=== PATIENT | male | born 1940 | race African-American/Black ===

== ENCOUNTER 2022-11-07 15:10 | Emergency (ER) | payer OTHER ==
[2022-11-07 15:31] VITALS: BMI 25.1
[2022-11-07] MEDS ORDERED: SODIUM CHLORIDE 0.9% 500 ML INFUS.BAG IV ONE (16:02)
[2022-11-07] MEDS ORDERED: ACETAMINOPHEN 1000 MG/100 ML BAG IVPB ONE (16:02)
[2022-11-07] MEDS ORDERED: ACETAMINOPHEN INJECTION 100 ML IVPB ONE (16:07)
[2022-11-07 17:54] LABS: BASO % 0.7 % (0-2.0); EOS % 1.5 % (0-4.5); HEMATOCRIT 39.1 % (35.4-49); HEMOGLOBIN 13.8 GM/dL (11.7-16.9); LYMPH % 11.1 % (8-40); MCH 33.6 pg (25.7-33.7); MCHC 35.3 g/dl (32.0-35.9); MEAN CELL VOLUME 95.1 fl (80-96); MEAN PLT VOLUME 8.3 fl (7.5-11.1); MONO % 5.1 % (3.8-10.2); NEUT % 81.6 % (42.8-82.8); PLATELET COUNT 213 10^3/uL (134-434); RBC 4.11 M/mm3 (4.00-5.60); RDW 13.7 % (11.9-15.9); WHITE BLOOD COUNT 5.5 K/mm3 (4.0-10.0)
[2022-11-07 17:58] LABS: INR 1.03 (0.83-1.09)
[2022-11-07 18:01] LABS: ACTIVATED PTT 24.4 SECONDS (25.2-36.5)
[2022-11-07 18:03] LABS: VENOUS BASE EXCESS 1.4 mmol/L (-2-2); VENOUS O2 SATURATION 73.5 % (70-80); VENOUS PCO2 46.2 mmHg (38-52); VENOUS PH 7.385 (7.310-7.410)
[2022-11-07 18:21] LABS: ALBUMIN 3.9 g/dl (3.4-5.0); BLOOD UREA NITROGEN 15.1 mg/dL (7-18); CALCIUM 8.9 mg/dL (8.5-10.1); MAGNESIUM 1.7 mg/dL (1.8-2.4)
[2022-11-07 18:24] LABS: CREATININE 1.3 mg/dL (0.55-1.3)
[2022-11-07] MEDS ORDERED: MAGNESIUM SULF 50% (8.12 MEQ/2 ML-1 GM VIAL) IVPB ONE (18:25)
[2022-11-07 18:26] LABS: BILIRUBIN,TOTAL 0.6 mg/dL (0.2-1); TOT PROT 6.9 g/dl (6.4-8.2)
[2022-11-07] MEDS ORDERED: MAGNESIUM SULFATE IN WATER 2 GM/50 ML IVPB IVPB ONE (18:32)
[2022-11-08] MEDS ORDERED: METOPROLOL TARTRATE 50 MG TABLET (FP) PO ONE (02:33)
[2022-11-08] MEDS ORDERED: METOPROLOL TARTRATE 50 MG TABLET (FP) ONE (04:40)
[2022-11-08 06:03] VITALS: BP 165/90; PULSE 79; RESP 15; TEMP 98.9
== END 2022-11-08 06:45 | disposition home or self-care (01) ==
LOC: JER 15:10
PROC: 3E033NZ Introduction of Analgesics, Hypnotics, Sedatives into Peripheral Vein, Percutaneous Approach (ICD-10-PCS; principal; 2022-11-07)
PROC: 3E033GC Introduction of Other Therapeutic Substance into Peripheral Vein, Percutaneous Approach (ICD-10-PCS; 2022-11-07)
DX: R06.02 Shortness of breath (principal); R07.9 Chest pain, unspecified; R05.9 Cough, unspecified; Z20.822 Contact with and (suspected) exposure to COVID-19
CPT/HCPCS: 0241U-QW; 36415; 71045-TC-FY; 71250-TC; 71275-TC; 74174-TC; 80053; 82803; 83605; 83735; 83880; 84484; 85025; 85610; 85730; 86850; 86900; 86901; 87040; 87186; 93005; 93010; 99285-25; Q9967

== ENCOUNTER 2022-11-08 10:43 | Inpatient (IN) | payer OTHER ==
[2022-11-08] MEDS ORDERED: PIPERACILLIN/TAZOB 4.5 GM 4.5 GM in DEXTROSE 5%-WATER 100 ML IVPB ONE (11:00)
[2022-11-08] MEDS ORDERED: PIPERACILLIN/TAZOB 4.5 GM 4.5 GM/100 ML BAG IVPB ONE (11:02)
[2022-11-08 11:44] LABS: HEMATOCRIT 39.4 % (35.4-49); HEMOGLOBIN 13.6 GM/dL (11.7-16.9); MCH 32.8 pg (25.7-33.7); MCHC 34.6 g/dl (32.0-35.9); MEAN CELL VOLUME 94.8 fl (80-96); MEAN PLT VOLUME 8.3 fl (7.5-11.1); PLATELET COUNT 204 10^3/uL (134-434); RBC 4.15 M/mm3 (4.00-5.60); RDW 14.1 % (11.9-15.9); WHITE BLOOD COUNT 6.4 K/mm3 (4.0-10.0)
[2022-11-08 12:11] LABS: POTASSIUM 4.2 mmol/L (3.5-5.1)
[2022-11-08 12:14] LABS: ALBUMIN 3.9 g/dl (3.4-5.0); BLOOD UREA NITROGEN 16.4 mg/dL (7-18)
[2022-11-08 12:17] LABS: CREATININE 1.4 mg/dL (0.55-1.3)
[2022-11-08 12:19] LABS: BILIRUBIN,TOTAL 0.7 mg/dL (0.2-1); TOT PROT 6.9 g/dl (6.4-8.2)
[2022-11-08 15:37] LABS: EPI CELLS 2 /uL (0-25.1); HYALINE CASTS 0 /uL (0-3.1); PH,URINE 5.5 (5.0-8.0); URINE APPEARANCE CLEAR; URINE BACTERIA 1 /uL (0-1359); URINE BILIRUBIN NEGATIVE (NEGATIVE); URINE COLOR YELLOW; URINE GLUCOSE (UA) NEGATIVE (NEGATIVE); URINE KETONE TRACE (NEGATIVE); URINE LEUK ESTERASE NEGATIVE (NEGATIVE); URINE NITRITE NEGATIVE (NEGATIVE); URINE PROTEIN 1+ (NEGATIVE); URINE RBC 70 /uL (0-23.9); URINE WBC 4 /uL (0-25.8)
[2022-11-08 15:38] LABS: VENOUS PCO2 42.5 mmHg (38-52); VENOUS PH 7.389 (7.310-7.410)
[2022-11-08] MEDS ORDERED: CEFEPIME HCL/D5W 2 GM/50 ML BAG IVPB SCH (16:00)
[2022-11-08 16:05] LABS: LACTIC ACID 2.4 mmol/L (0.4-2.0)
[2022-11-08] MEDS ORDERED: HEPARIN NA (PORCINE) 5,000 UNITS/ML 1ML VIAL ONE ×2 (16:24→21:02)
[2022-11-08] MEDS ORDERED: CEFEPIME 2 GM/100 ML BAG IVPB ONE (16:25)
[2022-11-08] MEDS ORDERED: ACETAMINOPHEN 1000 MG/100 ML BAG IVPB ONE (16:26)
[2022-11-08] MEDS: HEPARIN NA (PORCINE) 5,000 UNITS/ML 1ML VIAL SQ SCH ×2 (16:26→21:25)
[2022-11-08] MEDS: CEFEPIME 2 GM in DEXTROSE 5%-WATER 100 ML IVPB SCH (16:26)
[2022-11-08] MEDS ORDERED: ACETAMINOPHEN INJECTION 100 ML IVPB ONE (16:33)
[2022-11-08] MEDS ORDERED: METOPROLOL TARTRATE 50 MG TABLET (FP) ONE (21:01)
[2022-11-08] MEDS ORDERED: MONTELUKAST NA 10 MG TABLET ONE (21:02)
[2022-11-08] MEDS ORDERED: ATORVASTATIN CA 80 MG TABLET (FP) ONE (21:02)
[2022-11-08] MEDS: METOPROLOL TARTRATE 50 MG TABLET (FP) PO SCH (21:25)
[2022-11-08] MEDS: ATORVASTATIN CA 80 MG TABLET (FP) PO SCH (21:25)
[2022-11-08] MEDS: MONTELUKAST NA 10 MG TABLET PO SCH (21:26)
[2022-11-08] MEDS: VERAPAMIL HCL 240 MG E.R. TABLET PO SCH (22:10)
[2022-11-09] MEDS ORDERED: CEFEPIME 2 GM/100 ML BAG IVPB ONE (03:58)
[2022-11-09] MEDS: CEFEPIME 2 GM in DEXTROSE 5%-WATER 100 ML IVPB SCH (03:59)
[2022-11-09] MEDS ORDERED: SODIUM CHLORIDE 1,000 ML IV SCH (04:00)
[2022-11-09] MEDS: HEPARIN NA (PORCINE) 5,000 UNITS/ML 1ML VIAL SQ SCH ×3 (06:11→22:06)
[2022-11-09 10:06] LABS: POTASSIUM 3.5 mmol/L (3.5-5.1)
[2022-11-09 10:12] LABS: CALCIUM 8.7 mg/dL (8.5-10.1)
[2022-11-09 10:13] LABS: BLOOD UREA NITROGEN 13.1 mg/dL (7-18)
[2022-11-09 10:16] LABS: CREATININE 1.3 mg/dL (0.55-1.3)
[2022-11-09] MEDS: METOPROLOL TARTRATE 50 MG TABLET (FP) PO SCH ×2 (10:45→22:06)
[2022-11-09] MEDS: cloNIDine HCL 0.1 MG TABLET PO SCH (10:45)
[2022-11-09] MEDS: FINASTERIDE 5 MG TABLET (FP) PO SCH (10:45)
[2022-11-09 10:48] LABS: BASO % 0.6 % (0-2.0); EOS % 0.5 % (0-4.5); HEMATOCRIT 39.8 % (35.4-49); HEMOGLOBIN 13.9 GM/dL (11.7-16.9); MCH 33.2 pg (25.7-33.7); MEAN CELL VOLUME 94.7 fl (80-96); MEAN PLT VOLUME 8.2 fl (7.5-11.1); MONO % 14.9 % (3.8-10.2); PLATELET COUNT 189 10^3/uL (134-434); RDW 14.4 % (11.9-15.9)
[2022-11-09] MEDS: ENALAPRIL MALEATE 10 MG TABLET PO SCH (12:41)
[2022-11-09] MEDS: CEFTRIAXONE 2 GM in DEXTROSE 5%-WATER 100 ML IVPB SCH (12:41)
[2022-11-09] MEDS: BRIMONIDINE TARTRATE 0.1% OPHTHALMIC 5 ML BOTTLE OU SCH (15:13)
[2022-11-09] MEDS: VERAPAMIL HCL 240 MG E.R. TABLET PO SCH (22:06)
[2022-11-09] MEDS: ATORVASTATIN CA 80 MG TABLET (FP) PO SCH (22:06)
[2022-11-09] MEDS: MONTELUKAST NA 10 MG TABLET PO SCH (22:06)
[2022-11-09] MEDS: SODIUM CHLORIDE 1,000 ML IV SCH (22:07)
[2022-11-09] MEDS: TIMOLOL 0.5% OPHTHALMIC SOL 5 ML BOTTLE OU SCH (22:09)
[2022-11-10] MEDS: HEPARIN NA (PORCINE) 5,000 UNITS/ML 1ML VIAL SQ SCH ×3 (05:31→22:15)
[2022-11-10] MEDS: CEFTRIAXONE 2 GM in DEXTROSE 5%-WATER 100 ML IVPB SCH (10:08)
[2022-11-10] MEDS: METOPROLOL TARTRATE 50 MG TABLET (FP) PO SCH ×2 (10:09→22:15)
[2022-11-10] MEDS: FINASTERIDE 5 MG TABLET (FP) PO SCH (10:09)
[2022-11-10] MEDS: ENALAPRIL MALEATE 10 MG TABLET PO SCH (10:09)
[2022-11-10] MEDS: cloNIDine HCL 0.1 MG TABLET PO SCH (10:09)
[2022-11-10] MEDS: BRIMONIDINE TARTRATE 0.1% OPHTHALMIC 5 ML BOTTLE OU SCH (10:10)
[2022-11-10] MEDS: TIMOLOL 0.5% OPHTHALMIC SOL 5 ML BOTTLE OU SCH ×2 (10:10→22:15)
[2022-11-10] MEDS: SODIUM CHLORIDE 1,000 ML IV SCH (15:43)
[2022-11-10] MEDS: VERAPAMIL HCL 240 MG E.R. TABLET PO SCH (22:15)
[2022-11-10] MEDS: MONTELUKAST NA 10 MG TABLET PO SCH (22:15)
[2022-11-10] MEDS: ATORVASTATIN CA 80 MG TABLET (FP) PO SCH (22:15)
[2022-11-11] MEDS: HEPARIN NA (PORCINE) 5,000 UNITS/ML 1ML VIAL SQ SCH ×4 (06:13→21:56)
[2022-11-11] MEDS: BRIMONIDINE TARTRATE 0.1% OPHTHALMIC 5 ML BOTTLE OU SCH (09:39)
[2022-11-11] MEDS: cloNIDine HCL 0.1 MG TABLET PO SCH (09:40)
[2022-11-11] MEDS: CEFTRIAXONE 2 GM in DEXTROSE 5%-WATER 100 ML IVPB SCH (09:41)
[2022-11-11] MEDS: FINASTERIDE 5 MG TABLET (FP) PO SCH (09:41)
[2022-11-11] MEDS: METOPROLOL TARTRATE 50 MG TABLET (FP) PO SCH ×2 (09:41→21:50)
[2022-11-11] MEDS: TIMOLOL 0.5% OPHTHALMIC SOL 5 ML BOTTLE OU SCH ×2 (09:41→21:50)
[2022-11-11] MEDS: ENALAPRIL MALEATE 10 MG TABLET PO SCH (09:42)
[2022-11-11 11:17] LABS: BASO % 0.9 % (0-2.0); EOS % 2.6 % (0-4.5); HEMATOCRIT 40.7 % (35.4-49); HEMOGLOBIN 14.3 GM/dL (11.7-16.9); LYMPH % 41.5 % (8-40); MCH 32.9 pg (25.7-33.7); MCHC 35.1 g/dl (32.0-35.9); MEAN CELL VOLUME 93.9 fl (80-96); MEAN PLT VOLUME 8.2 fl (7.5-11.1); MONO % 14.7 % (3.8-10.2); NEUT % 40.3 % (42.8-82.8); PLATELET COUNT 204 10^3/uL (134-434); RBC 4.33 M/mm3 (4.00-5.60); RDW 13.9 % (11.9-15.9); WHITE BLOOD COUNT 6.2 K/mm3 (4.0-10.0)
[2022-11-11 11:39] LABS: POTASSIUM 3.2 mmol/L (3.5-5.1)
[2022-11-11 11:41] LABS: CALCIUM 9.1 mg/dL (8.5-10.1)
[2022-11-11 11:42] LABS: ALBUMIN 3.8 g/dl (3.4-5.0); BLOOD UREA NITROGEN 10.2 mg/dL (7-18)
[2022-11-11 11:46] LABS: BILIRUBIN,TOTAL 0.4 mg/dL (0.2-1)
[2022-11-11] MEDS ORDERED: POTASSIUM CHLORIDE TABS 20 MEQ TABLET.ER (FP) PO ONE (16:47)
[2022-11-11] MEDS: ATORVASTATIN CA 80 MG TABLET (FP) PO SCH (21:50)
[2022-11-11] MEDS: MONTELUKAST NA 10 MG TABLET PO SCH (21:50)
[2022-11-11] MEDS: VERAPAMIL HCL 240 MG E.R. TABLET PO SCH (21:50)
[2022-11-12] MEDS: HEPARIN NA (PORCINE) 5,000 UNITS/ML 1ML VIAL SQ SCH ×3 (06:21→21:45)
[2022-11-12] MEDS: METOPROLOL TARTRATE 50 MG TABLET (FP) PO SCH ×2 (10:02→21:44)
[2022-11-12] MEDS: cloNIDine HCL 0.1 MG TABLET PO SCH (10:03)
[2022-11-12] MEDS: CEFTRIAXONE 2 GM in DEXTROSE 5%-WATER 100 ML IVPB SCH (10:03)
[2022-11-12] MEDS: FINASTERIDE 5 MG TABLET (FP) PO SCH (10:03)
[2022-11-12] MEDS: ENALAPRIL MALEATE 10 MG TABLET PO SCH (10:05)
[2022-11-12] MEDS: TIMOLOL 0.5% OPHTHALMIC SOL 5 ML BOTTLE OU SCH ×2 (10:11→21:45)
[2022-11-12] MEDS: BRIMONIDINE TARTRATE 0.1% OPHTHALMIC 5 ML BOTTLE OU SCH (10:11)
[2022-11-12 11:24] LABS: BASO % 0.9 % (0-2.0); EOS % 2.1 % (0-4.5); HEMATOCRIT 39.8 % (35.4-49); HEMOGLOBIN 13.8 GM/dL (11.7-16.9); LYMPH % 42.1 % (8-40); MCH 32.6 pg (25.7-33.7); MCHC 34.6 g/dl (32.0-35.9); MEAN CELL VOLUME 94.3 fl (80-96); MEAN PLT VOLUME 7.7 fl (7.5-11.1); NEUT % 42.9 % (42.8-82.8); PLATELET COUNT 220 10^3/uL (134-434); RBC 4.22 M/mm3 (4.00-5.60); RDW 13.9 % (11.9-15.9)
[2022-11-12 11:53] LABS: POTASSIUM 3.3 mmol/L (3.5-5.1)
[2022-11-12 12:21] LABS: CALCIUM 9.2 mg/dL (8.5-10.1)
[2022-11-12 12:22] LABS: ALBUMIN 3.5 g/dl (3.4-5.0); BLOOD UREA NITROGEN 11.3 mg/dL (7-18)
[2022-11-12 12:25] LABS: BILIRUBIN,TOTAL 0.4 mg/dL (0.2-1); CREATININE 1.1 mg/dL (0.55-1.3); MAGNESIUM 2.1 mg/dL (1.8-2.4); TOT PROT 6.9 g/dl (6.4-8.2)
[2022-11-12] MEDS: VERAPAMIL HCL 240 MG E.R. TABLET PO SCH (21:44)
[2022-11-12] MEDS: MONTELUKAST NA 10 MG TABLET PO SCH (21:44)
[2022-11-12] MEDS: ATORVASTATIN CA 80 MG TABLET (FP) PO SCH (21:44)
[2022-11-12] MEDS ORDERED: ENALAPRIL MALEATE 5 MG TABLET PO ONE (23:50)
[2022-11-13] MEDS ORDERED: hydrALAZINE HCL 10 MG TABLET PO ONE (02:37)
[2022-11-13] MEDS ORDERED: ENALAPRIL MALEATE 10 MG TABLET PO SCH (02:45)
[2022-11-13] MEDS: HEPARIN NA (PORCINE) 5,000 UNITS/ML 1ML VIAL SQ SCH ×3 (05:15→21:55)
[2022-11-13 09:23] LABS: BASO % 0.6 % (0-2.0); EOS % 1.9 % (0-4.5); HEMOGLOBIN 14.3 GM/dL (11.7-16.9); LYMPH % 36.9 % (8-40); MCH 32.7 pg (25.7-33.7); MCHC 34.9 g/dl (32.0-35.9); MEAN CELL VOLUME 93.7 fl (80-96); MEAN PLT VOLUME 7.6 fl (7.5-11.1); MONO % 10.5 % (3.8-10.2); NEUT % 50.1 % (42.8-82.8); PLATELET COUNT 221 10^3/uL (134-434); RBC 4.38 M/mm3 (4.00-5.60); WHITE BLOOD COUNT 8.2 K/mm3 (4.0-10.0)
[2022-11-13] MEDS: METOPROLOL TARTRATE 50 MG TABLET (FP) PO SCH ×2 (09:30→21:55)
[2022-11-13] MEDS: ENALAPRIL MALEATE 10 MG TABLET PO SCH (09:30)
[2022-11-13] MEDS: cloNIDine HCL 0.1 MG TABLET PO SCH (09:30)
[2022-11-13] MEDS: FINASTERIDE 5 MG TABLET (FP) PO SCH (09:31)
[2022-11-13] MEDS: BRIMONIDINE TARTRATE 0.1% OPHTHALMIC 5 ML BOTTLE OU SCH (09:33)
[2022-11-13] MEDS: TIMOLOL 0.5% OPHTHALMIC SOL 5 ML BOTTLE OU SCH ×2 (09:33→21:56)
[2022-11-13 09:40] LABS: POTASSIUM 3.3 mmol/L (3.5-5.1)
[2022-11-13 09:45] LABS: ALBUMIN 3.7 g/dl (3.4-5.0); BLOOD UREA NITROGEN 13.7 mg/dL (7-18); CALCIUM 9.3 mg/dL (8.5-10.1); MAGNESIUM 1.8 mg/dL (1.8-2.4)
[2022-11-13 09:48] LABS: CREATININE 1.1 mg/dL (0.55-1.3)
[2022-11-13 09:50] LABS: BILIRUBIN,TOTAL 0.8 mg/dL (0.2-1)
[2022-11-13] MEDS ORDERED: POTASSIUM CHLORIDE ORAL LIQUID 20 MEQ/15 ML PO ONE (11:11)
[2022-11-13] MEDS: CEFTRIAXONE 2 GM in DEXTROSE 5%-WATER 100 ML IVPB SCH (12:39)
[2022-11-13] MEDS: POLYETHYLENE GLYCOL (HEALTHYLAX) 3350 17 GM PACKET PO SCH ×2 (13:17→21:55)
[2022-11-13] MEDS: MONTELUKAST NA 10 MG TABLET PO SCH (21:55)
[2022-11-13] MEDS: ATORVASTATIN CA 80 MG TABLET (FP) PO SCH (21:55)
[2022-11-13] MEDS: VERAPAMIL HCL 240 MG E.R. TABLET PO SCH (21:56)
[2022-11-14] MEDS: POLYETHYLENE GLYCOL (HEALTHYLAX) 3350 17 GM PACKET PO SCH ×3 (05:32→21:41)
[2022-11-14] MEDS: HEPARIN NA (PORCINE) 5,000 UNITS/ML 1ML VIAL SQ SCH ×3 (05:32→21:41)
[2022-11-14 08:09] LABS: BASO % 0.6 % (0-2.0); HEMATOCRIT 39.6 % (35.4-49); HEMOGLOBIN 13.9 GM/dL (11.7-16.9); LYMPH % 32.3 % (8-40); MCH 33.1 pg (25.7-33.7); MCHC 35.1 g/dl (32.0-35.9); MEAN CELL VOLUME 94.1 fl (80-96); MEAN PLT VOLUME 8.2 fl (7.5-11.1); MONO % 10.2 % (3.8-10.2); NEUT % 54.9 % (42.8-82.8); PLATELET COUNT 231 10^3/uL (134-434); RBC 4.21 M/mm3 (4.00-5.60); RDW 13.9 % (11.9-15.9); WHITE BLOOD COUNT 8.8 K/mm3 (4.0-10.0)
[2022-11-14 08:18] LABS: INR 1.08 (0.83-1.09); POTASSIUM 3.5 mmol/L (3.5-5.1); PROTHROMBIN TIME (PATIENT) 12.5 SEC (9.7-13.0)
[2022-11-14 08:20] LABS: ALBUMIN 3.6 g/dl (3.4-5.0); CALCIUM 9.2 mg/dL (8.5-10.1)
[2022-11-14 08:24] LABS: CREATININE 1.1 mg/dL (0.55-1.3)
[2022-11-14 08:25] LABS: BILIRUBIN,TOTAL 0.9 mg/dL (0.2-1); TOT PROT 6.5 g/dl (6.4-8.2)
[2022-11-14] MEDS: METOPROLOL TARTRATE 50 MG TABLET (FP) PO SCH ×2 (09:00→21:41)
[2022-11-14] MEDS: cloNIDine HCL 0.1 MG TABLET PO SCH (09:00)
[2022-11-14] MEDS: FINASTERIDE 5 MG TABLET (FP) PO SCH (09:00)
[2022-11-14] MEDS: CEFTRIAXONE 2 GM in DEXTROSE 5%-WATER 100 ML IVPB SCH (09:01)
[2022-11-14] MEDS: BRIMONIDINE TARTRATE 0.1% OPHTHALMIC 5 ML BOTTLE OU SCH (09:02)
[2022-11-14] MEDS: TIMOLOL 0.5% OPHTHALMIC SOL 5 ML BOTTLE OU SCH ×2 (09:02→22:53)
[2022-11-14] MEDS: ENALAPRIL MALEATE 10 MG TABLET PO SCH (09:02)
[2022-11-14] MEDS ORDERED: BISACODYL 5 MG TABLET.DR (FP) PO ONE (16:00)
[2022-11-14] MEDS ORDERED: PEG 3350/NA SULF BICARB CL/KCL 4000 ML SOLN.RECON PO ONE (17:00)
[2022-11-14] MEDS: ATORVASTATIN CA 80 MG TABLET (FP) PO SCH (21:41)
[2022-11-14] MEDS: MONTELUKAST NA 10 MG TABLET PO SCH (21:41)
[2022-11-14] MEDS: VERAPAMIL HCL 240 MG E.R. TABLET PO SCH (22:52)
[2022-11-15] MEDS: CEFAZOLIN SODIUM 2 GM in DEXTROSE 5%-WATER 100 ML IVPB SCH ×3 (04:53→18:18)
[2022-11-15] MEDS: POLYETHYLENE GLYCOL (HEALTHYLAX) 3350 17 GM PACKET PO SCH ×3 (05:35→21:42)
[2022-11-15 08:30] LABS: BASO % 0.7 % (0-2.0); EOS % 1.9 % (0-4.5); HEMATOCRIT 37.6 % (35.4-49); HEMOGLOBIN 13.3 GM/dL (11.7-16.9); LYMPH % 37.9 % (8-40); MCH 33.3 pg (25.7-33.7); MCHC 35.3 g/dl (32.0-35.9); MEAN CELL VOLUME 94.4 fl (80-96); MEAN PLT VOLUME 8.4 fl (7.5-11.1); MONO % 10.4 % (3.8-10.2); NEUT % 49.1 % (42.8-82.8); PLATELET COUNT 237 10^3/uL (134-434); RBC 3.99 M/mm3 (4.00-5.60); RDW 14.1 % (11.9-15.9)
[2022-11-15 08:33] LABS: INR 1.13 (0.83-1.09); PROTHROMBIN TIME (PATIENT) 13.1 SEC (9.7-13.0)
[2022-11-15 08:45] LABS: POTASSIUM 3.3 mmol/L (3.5-5.1)
[2022-11-15 08:48] LABS: ALBUMIN 3.5 g/dl (3.4-5.0); BLOOD UREA NITROGEN 9.8 mg/dL (7-18); CALCIUM 8.6 mg/dL (8.5-10.1)
[2022-11-15 08:51] LABS: CREATININE 1.1 mg/dL (0.55-1.3)
[2022-11-15 08:53] LABS: BILIRUBIN,TOTAL 0.7 mg/dL (0.2-1); TOT PROT 6.3 g/dl (6.4-8.2)
[2022-11-15] MEDS: cloNIDine HCL 0.1 MG TABLET PO SCH (09:36)
[2022-11-15] MEDS: ENALAPRIL MALEATE 10 MG TABLET PO SCH (09:36)
[2022-11-15] MEDS: METOPROLOL TARTRATE 50 MG TABLET (FP) PO SCH ×2 (09:37→22:36)
[2022-11-15] MEDS: FINASTERIDE 5 MG TABLET (FP) PO SCH (09:37)
[2022-11-15] MEDS: BRIMONIDINE TARTRATE 0.1% OPHTHALMIC 5 ML BOTTLE OU SCH (09:40)
[2022-11-15] MEDS: TIMOLOL 0.5% OPHTHALMIC SOL 5 ML BOTTLE OU SCH ×2 (09:52→22:37)
[2022-11-15] MEDS ORDERED: POLYETHYLENE GLYCOL 3350 255 GM BTL PO ONE (11:21)
[2022-11-15 13:25] VITALS: BMI 26.4
[2022-11-15] MEDS ORDERED: POTASSIUM CHLORIDE TABS 10 MEQ TABLET.ER (FP) PO ONE (16:18)
[2022-11-15] MEDS: hydrALAZINE HCL 50 MG TABLET (FP) PO SCH ×2 (17:00→21:48)
[2022-11-15] MEDS ORDERED: BISACODYL 5 MG TABLET.DR (FP) PO ONE (20:00)
[2022-11-15] MEDS: MELATONIN 5 MG TABLETS PO PRN (22:35)
[2022-11-15] MEDS: VERAPAMIL HCL 240 MG E.R. TABLET PO SCH (22:35)
[2022-11-15] MEDS: MONTELUKAST NA 10 MG TABLET PO SCH (22:36)
[2022-11-15] MEDS: ATORVASTATIN CA 80 MG TABLET (FP) PO SCH (22:36)
[2022-11-16] MEDS: CEFAZOLIN SODIUM 2 GM in DEXTROSE 5%-WATER 100 ML IVPB SCH ×3 (01:03→18:18)
[2022-11-16] MEDS: POLYETHYLENE GLYCOL (HEALTHYLAX) 3350 17 GM PACKET PO SCH ×3 (05:31→21:42)
[2022-11-16] MEDS: hydrALAZINE HCL 50 MG TABLET (FP) PO SCH ×3 (06:20→21:22)
[2022-11-16 08:15] LABS: INR 1.13 (0.83-1.09); PROTHROMBIN TIME (PATIENT) 13.1 SEC (9.7-13.0)
[2022-11-16 08:23] LABS: POTASSIUM 3.4 mmol/L (3.5-5.1)
[2022-11-16 08:30] LABS: CALCIUM 9.2 mg/dL (8.5-10.1)
[2022-11-16 08:31] LABS: ALBUMIN 3.8 g/dl (3.4-5.0); BLOOD UREA NITROGEN 5.1 mg/dL (7-18)
[2022-11-16 08:35] LABS: TOT PROT 6.6 g/dl (6.4-8.2)
[2022-11-16 09:09] LABS: BASO % 0.8 % (0-2.0); EOS % 2.5 % (0-4.5); HEMATOCRIT 40.7 % (35.4-49); LYMPH % 33.1 % (8-40); MCH 32.5 pg (25.7-33.7); MCHC 34.3 g/dl (32.0-35.9); MEAN CELL VOLUME 94.5 fl (80-96); NEUT % 52.6 % (42.8-82.8); PLATELET COUNT 253 10^3/uL (134-434); RBC 4.31 M/mm3 (4.00-5.60); RDW 13.9 % (11.9-15.9); WHITE BLOOD COUNT 9.2 K/mm3 (4.0-10.0)
[2022-11-16] MEDS: FINASTERIDE 5 MG TABLET (FP) PO SCH (10:57)
[2022-11-16] MEDS: METOPROLOL TARTRATE 50 MG TABLET (FP) PO SCH ×2 (10:57→21:45)
[2022-11-16] MEDS: cloNIDine HCL 0.1 MG TABLET PO SCH (11:00)
[2022-11-16] MEDS: ENALAPRIL MALEATE 10 MG TABLET PO SCH (11:01)
[2022-11-16] MEDS: TIMOLOL 0.5% OPHTHALMIC SOL 5 ML BOTTLE OU SCH ×2 (11:04→21:45)
[2022-11-16] MEDS: BRIMONIDINE TARTRATE 0.1% OPHTHALMIC 5 ML BOTTLE OU SCH (11:04)
[2022-11-16] MEDS ORDERED: POTASSIUM CHLORIDE TABS 20 MEQ TABLET.ER (FP) PO ONE (20:05)
[2022-11-16] MEDS: ATORVASTATIN CA 80 MG TABLET (FP) PO SCH (21:44)
[2022-11-16] MEDS: MELATONIN 5 MG TABLETS PO PRN (21:44)
[2022-11-16] MEDS: MONTELUKAST NA 10 MG TABLET PO SCH (21:44)
[2022-11-16] MEDS: VERAPAMIL HCL 240 MG E.R. TABLET PO SCH (21:45)
[2022-11-17] MEDS: CEFAZOLIN SODIUM 2 GM in DEXTROSE 5%-WATER 100 ML IVPB SCH ×3 (01:26→17:03)
[2022-11-17] MEDS: hydrALAZINE HCL 50 MG TABLET (FP) PO SCH ×3 (06:00→21:40)
[2022-11-17] MEDS: POLYETHYLENE GLYCOL (HEALTHYLAX) 3350 17 GM PACKET PO SCH ×3 (06:09→21:41)
[2022-11-17] MEDS ORDERED: ACETAMINOPHEN 1000 MG/100 ML BAG IVPB PRN (08:58)
[2022-11-17] MEDS ORDERED: ONDANSETRON 4 MG/2 ML VIAL IVPUSH PRN (09:00)
[2022-11-17] MEDS: cloNIDine HCL 0.1 MG TABLET PO SCH (09:03)
[2022-11-17] MEDS: FINASTERIDE 5 MG TABLET (FP) PO SCH (09:03)
[2022-11-17] MEDS: ENALAPRIL MALEATE 10 MG TABLET PO SCH (09:03)
[2022-11-17] MEDS: METOPROLOL TARTRATE 50 MG TABLET (FP) PO SCH ×2 (09:03→21:40)
[2022-11-17] MEDS: BRIMONIDINE TARTRATE 0.1% OPHTHALMIC 5 ML BOTTLE OU SCH (09:04)
[2022-11-17] MEDS: TIMOLOL 0.5% OPHTHALMIC SOL 5 ML BOTTLE OU SCH ×2 (09:05→21:41)
[2022-11-17 09:30] LABS: BASO % 0.7 % (0-2.0); EOS % 1.1 % (0-4.5); HEMOGLOBIN 13.7 GM/dL (11.7-16.9); LYMPH % 29.8 % (8-40); MCH 32.6 pg (25.7-33.7); MCHC 34.2 g/dl (32.0-35.9); MEAN CELL VOLUME 95.4 fl (80-96); MEAN PLT VOLUME 8.3 fl (7.5-11.1); MONO % 9.2 % (3.8-10.2); NEUT % 59.2 % (42.8-82.8); PLATELET COUNT 209 10^3/uL (134-434); RBC 4.19 M/mm3 (4.00-5.60); RDW 14.3 % (11.9-15.9); WHITE BLOOD COUNT 9.9 K/mm3 (4.0-10.0)
[2022-11-17 09:42] LABS: POTASSIUM 3.7 mmol/L (3.5-5.1)
[2022-11-17 09:45] LABS: ALBUMIN 3.6 g/dl (3.4-5.0)
[2022-11-17 09:47] LABS: CALCIUM 8.9 mg/dL (8.5-10.1)
[2022-11-17 09:48] LABS: BLOOD UREA NITROGEN 8.1 mg/dL (7-18); CREATININE 1.2 mg/dL (0.55-1.3)
[2022-11-17 09:49] LABS: BILIRUBIN,TOTAL 0.7 mg/dL (0.2-1)
[2022-11-17 09:50] LABS: TOT PROT 6.2 g/dl (6.4-8.2)
[2022-11-17] MEDS: FAMOTIDINE 20 MG/50 ML IVPB 20 MG/50 ML MG IVPB SCH ×2 (10:25→21:41)
[2022-11-17] MEDS: MAG HYDROX/AL HYDROX/SIMETH 30 ML UNIT-DOSE CUP PO SCH (17:03)
[2022-11-17] MEDS: MONTELUKAST NA 10 MG TABLET PO SCH (21:40)
[2022-11-17] MEDS: VERAPAMIL HCL 240 MG E.R. TABLET PO SCH (21:40)
[2022-11-17] MEDS: ATORVASTATIN CA 80 MG TABLET (FP) PO SCH (21:41)
[2022-11-18] MEDS: MAG HYDROX/AL HYDROX/SIMETH 30 ML UNIT-DOSE CUP PO SCH ×5 (00:34→23:00)
[2022-11-18] MEDS: CEFAZOLIN SODIUM 2 GM in DEXTROSE 5%-WATER 100 ML IVPB SCH ×3 (01:25→18:21)
[2022-11-18] MEDS: POLYETHYLENE GLYCOL (HEALTHYLAX) 3350 17 GM PACKET PO SCH ×3 (05:03→21:23)
[2022-11-18] MEDS: hydrALAZINE HCL 50 MG TABLET (FP) PO SCH ×3 (05:03→21:23)
[2022-11-18] MEDS: HEPARIN NA (PORCINE) 5,000 UNITS/ML 1ML VIAL SQ SCH ×3 (05:04→21:23)
[2022-11-18 08:17] LABS: BASO % 0.6 % (0-2.0); EOS % 0.8 % (0-4.5); HEMATOCRIT 38.8 % (35.4-49); HEMOGLOBIN 13.4 GM/dL (11.7-16.9); LYMPH % 32.9 % (8-40); MCH 33.1 pg (25.7-33.7); MCHC 34.6 g/dl (32.0-35.9); MEAN CELL VOLUME 95.4 fl (80-96); MEAN PLT VOLUME 8.4 fl (7.5-11.1); NEUT % 57.7 % (42.8-82.8); PLATELET COUNT 265 10^3/uL (134-434); RBC 4.06 M/mm3 (4.00-5.60); RDW 14.3 % (11.9-15.9); WHITE BLOOD COUNT 10.5 K/mm3 (4.0-10.0)
[2022-11-18 08:25] LABS: POTASSIUM 3.3 mmol/L (3.5-5.1)
[2022-11-18] MEDS ORDERED: POTASSIUM CHLORIDE ORAL LIQUID 20 MEQ/15 ML PO ONE (08:31)
[2022-11-18 08:34] LABS: CALCIUM 8.7 mg/dL (8.5-10.1)
[2022-11-18 08:35] LABS: ALBUMIN 3.6 g/dl (3.4-5.0)
[2022-11-18 08:38] LABS: CREATININE 1.2 mg/dL (0.55-1.3)
[2022-11-18 08:40] LABS: BILIRUBIN,TOTAL 0.7 mg/dL (0.2-1); TOT PROT 6.3 g/dl (6.4-8.2)
[2022-11-18] MEDS: cloNIDine HCL 0.1 MG TABLET PO SCH (09:24)
[2022-11-18] MEDS: METOPROLOL TARTRATE 50 MG TABLET (FP) PO SCH ×2 (09:24→21:22)
[2022-11-18] MEDS: FINASTERIDE 5 MG TABLET (FP) PO SCH (09:24)
[2022-11-18] MEDS: TIMOLOL 0.5% OPHTHALMIC SOL 5 ML BOTTLE OU SCH ×2 (09:25→21:24)
[2022-11-18] MEDS: BRIMONIDINE TARTRATE 0.1% OPHTHALMIC 5 ML BOTTLE OU SCH (09:25)
[2022-11-18] MEDS: ENALAPRIL MALEATE 10 MG TABLET PO SCH (09:27)
[2022-11-18] MEDS: FAMOTIDINE 20 MG/50 ML IVPB 20 MG/50 ML MG IVPB SCH ×2 (11:40→21:24)
[2022-11-18] MEDS: ATORVASTATIN CA 80 MG TABLET (FP) PO SCH (21:22)
[2022-11-18] MEDS: VERAPAMIL HCL 240 MG E.R. TABLET PO SCH (21:22)
[2022-11-18] MEDS: MONTELUKAST NA 10 MG TABLET PO SCH (21:22)
[2022-11-19] MEDS: CEFAZOLIN SODIUM 2 GM in DEXTROSE 5%-WATER 100 ML IVPB SCH ×4 (01:14→17:05)
[2022-11-19] MEDS: POLYETHYLENE GLYCOL (HEALTHYLAX) 3350 17 GM PACKET PO SCH ×2 (06:01→13:42)
[2022-11-19] MEDS: hydrALAZINE HCL 50 MG TABLET (FP) PO SCH (06:01)
[2022-11-19] MEDS: HEPARIN NA (PORCINE) 5,000 UNITS/ML 1ML VIAL SQ SCH ×2 (06:01→13:43)
[2022-11-19] MEDS: MAG HYDROX/AL HYDROX/SIMETH 30 ML UNIT-DOSE CUP PO SCH ×3 (06:05→17:06)
[2022-11-19] MEDS: METOPROLOL TARTRATE 50 MG TABLET (FP) PO SCH (09:01)
[2022-11-19] MEDS: FAMOTIDINE 20 MG/50 ML IVPB 20 MG/50 ML MG IVPB SCH (09:01)
[2022-11-19] MEDS: FINASTERIDE 5 MG TABLET (FP) PO SCH (09:01)
[2022-11-19] MEDS: cloNIDine HCL 0.1 MG TABLET PO SCH (09:02)
[2022-11-19] MEDS: TIMOLOL 0.5% OPHTHALMIC SOL 5 ML BOTTLE OU SCH (09:02)
[2022-11-19] MEDS: ENALAPRIL MALEATE 10 MG TABLET PO SCH (09:02)
[2022-11-19] MEDS: BRIMONIDINE TARTRATE 0.1% OPHTHALMIC 5 ML BOTTLE OU SCH (09:03)
[2022-11-19] MEDS ORDERED: hydrALAZINE HCL 50 MG TABLET (FP) PO SCH (11:44)
[2022-11-19 18:21] VITALS: BP 144/89; PULSE 73; RESP 20; TEMP 98.8
== END 2022-11-19 20:01 | disposition home or self-care (01) | DRG 872 ==
LOC: JER 10:43 → JERBED 13:18 → OBSVTOIN 14:39 → J5S 11-09 04:39
PROVIDERS: ADMIT Internal Medicine; ATTEND Internal Medicine
PROC: 0DBN8ZX Excision of Sigmoid Colon, Via Natural or Artificial Opening Endoscopic, Diagnostic (ICD-10-PCS; 2022-11-16)
PROC: 0DBP8ZX Excision of Rectum, Via Natural or Artificial Opening Endoscopic, Diagnostic (ICD-10-PCS; 2022-11-16)
PROC: 0DBK8ZX Excision of Ascending Colon, Via Natural or Artificial Opening Endoscopic, Diagnostic (ICD-10-PCS; principal; 2022-11-16 14:15)
DX: R78.81 Bacteremia (principal); I10 Essential (primary) hypertension; E78.5 Hyperlipidemia, unspecified; N40.0 Benign prostatic hyperplasia without lower urinary tract symptoms; H40.9 Unspecified glaucoma; R31.29 Other microscopic hematuria; I71.21 Aneurysm of the ascending aorta, without rupture; R91.1 Solitary pulmonary nodule; D12.5 Benign neoplasm of sigmoid colon; R74.01 Elevation of levels of liver transaminase levels; E87.6 Hypokalemia; D12.2 Benign neoplasm of ascending colon; D12.8 Benign neoplasm of rectum; K57.30 Diverticulosis of large intestine without perforation or abscess without bleeding; K64.8 Other hemorrhoids; J44.9 Chronic obstructive pulmonary disease, unspecified
CPT/HCPCS: 0241U-QW; 36415; 71045-TC-FY; 71250-TC; 71275-TC; 74018-TC-FY; 74174-TC; 76705-TC; 80048; 80053; 81003; 82088; 82272; 82550; 82803; 83605; 83735; 83880; 84244; 84484; 85025; 85027; 85610; 85730; 86850; 86900; 86901; 87040; 87076; 87186; 88305-TC; 93005; 93010; 97116-GP; 97161-GP; 99285-25; C9803-CS; G0378; J1644; Q9967; U0003; U0005

== ENCOUNTER 2023-02-24 08:54 | Emergency (ER) | payer OTHER ==
[2023-02-24 08:59] VITALS: BMI 27.8
[2023-02-24] MEDS ORDERED: ASPIRIN 81 MG CHEWABLE TABLETS PO ONE (10:05)
[2023-02-24] MEDS ORDERED: ASPIRIN 81 MG CHEWABLE TABLETS ONE (10:49)
[2023-02-24 10:58] LABS: BASO % 0.8 % (0-2.0); EOS % 2.7 % (0-4.5); HEMATOCRIT 39.2 % (35.4-49); HEMOGLOBIN 13.1 GM/dL (11.7-16.9); LYMPH % 31.8 % (8-40); MCH 31.5 pg (25.7-33.7); MCHC 33.5 g/dl (32.0-35.9); MEAN CELL VOLUME 94.3 fl (80-96); MEAN PLT VOLUME 8.2 fl (7.5-11.1); MONO % 10.8 % (3.8-10.2); NEUT % 53.9 % (42.8-82.8); PLATELET COUNT 211 10^3/uL (134-434); RBC 4.16 M/mm3 (4.00-5.60); RDW 13.6 % (11.9-15.9); WHITE BLOOD COUNT 6.6 K/mm3 (4.0-10.0)
[2023-02-24 11:04] LABS: INR 0.97 (0.83-1.09); PROTHROMBIN TIME (PATIENT) 11.3 SEC (9.7-13.0)
[2023-02-24 11:07] LABS: ACTIVATED PTT 26.1 SECONDS (25.2-36.5)
[2023-02-24 11:14] LABS: POTASSIUM 3.9 mmol/L (3.5-5.1)
[2023-02-24 11:16] LABS: CALCIUM 8.7 mg/dL (8.5-10.1)
[2023-02-24 11:17] LABS: ALBUMIN 3.9 g/dl (3.4-5.0); BLOOD UREA NITROGEN 12.1 mg/dL (7-18); MAGNESIUM 2.3 mg/dL (1.8-2.4)
[2023-02-24 11:20] LABS: CREATININE 1.2 mg/dL (0.55-1.3)
[2023-02-24 11:21] LABS: BILIRUBIN,TOTAL 0.5 mg/dL (0.2-1)
[2023-02-24 11:22] LABS: TOT PROT 6.6 g/dl (6.4-8.2)
[2023-02-24 17:47] VITALS: BP 156/78; PULSE 64; RESP 16; TEMP 98.3
== END 2023-02-24 17:58 | disposition home or self-care (01) ==
LOC: JER 08:54
DX: R07.9 Chest pain, unspecified (principal); R10.9 Unspecified abdominal pain; R11.0 Nausea
CPT/HCPCS: 36415; 71046-TC-FY; 80053; 82550; 83735; 84484; 85025; 85610; 85730; 93005; 93010; 99285-25

== ENCOUNTER 2024-07-30 15:02 | Inpatient (IN) | payer OTHER ==
[2024-07-30 17:20] LABS: VENOUS BASE EXCESS 1.7 mmol/L (-2-2); VENOUS O2 SATURATION 78.3 % (70-80); VENOUS PCO2 42.4 mmHg (38-52); VENOUS PH 7.414 (7.310-7.410)
[2024-07-30 17:41] LABS: BASO % 0.2 % (0-2.0); EOS % 0.1 % (0-4.5); HEMATOCRIT 39.3 % (35.4-49); HEMOGLOBIN 13.1 GM/dL (11.7-16.9); LYMPH % 21.9 % (8-40); MCH 31.4 pg (25.7-33.7); MCHC 33.3 g/dl (32.0-35.9); MEAN CELL VOLUME 94.2 fl (80-96); MEAN PLT VOLUME 7.9 fl (7.5-11.1); MONO % 17.6 % (3.8-10.2); NEUT % 60.2 % (42.8-82.8); PLATELET COUNT 193 10^3/uL (134-434); RBC 4.17 M/mm3 (4.00-5.60); RDW 14.2 % (11.9-15.9); WHITE BLOOD COUNT 7.2 K/mm3 (4.0-10.0)
[2024-07-30 17:42] LABS: INR 1.18 (0.83-1.09); PROTHROMBIN TIME (PATIENT) 13.3 SEC (9.7-13.0)
[2024-07-30 17:45] LABS: ACTIVATED PTT 29.5 SECONDS (25.2-36.5)
[2024-07-30 17:46] LABS: POTASSIUM 3.5 mmol/L (3.5-5.1)
[2024-07-30 17:47] LABS: CALCIUM 8.9 mg/dL (8.5-10.1)
[2024-07-30 17:48] LABS: ALBUMIN 3.7 g/dl (3.4-5.0); BLOOD UREA NITROGEN 20.7 mg/dL (7-18)
[2024-07-30 17:51] LABS: CREATININE 1.4 mg/dL (0.55-1.3)
[2024-07-30 17:53] LABS: BILIRUBIN,TOTAL 0.5 mg/dL (0.2-1); TOT PROT 6.6 g/dl (6.4-8.2)
[2024-07-30] MEDS ORDERED: ALBUTEROL SO4 2.5/IPRATROPIUM 0.5 INH SOL 3 ML VIAL.NEB. NEB ONE (18:05)
[2024-07-30] MEDS ORDERED: ASPIRIN 81 MG CHEWABLE TABLETS ONE ×2 (18:05→19:29)
[2024-07-30] MEDS: ASPIRIN 81 MG CHEWABLE TABLETS PO ONE ×2 (18:06→19:23)
[2024-07-30] MEDS: ALBUTEROL SO4 2.5/IPRATROPIUM 0.5 INH SOL 3 ML VIAL.NEB. NEB SCH (18:06)
[2024-07-30 18:19] LABS: EPI CELLS 17 /uL (0-25.1); HYALINE CASTS 5 /uL (0-3.1); PH,URINE 5.5 (5.0-8.0); URINE APPEARANCE CLEAR; URINE BACTERIA 23 /uL (0-1359); URINE BILIRUBIN NEGATIVE (NEGATIVE); URINE COLOR YELLOW; URINE GLUCOSE (UA) NEGATIVE (NEGATIVE); URINE KETONE NEGATIVE (NEGATIVE); URINE LEUK ESTERASE NEGATIVE (NEGATIVE); URINE NITRITE NEGATIVE (NEGATIVE); URINE PROTEIN 1+ (NEGATIVE); URINE RBC 84 /uL (0-23.9); URINE WBC 21 /uL (0-25.8)
[2024-07-30 23:18] VITALS: BMI 26.8
[2024-07-30] MEDS: OSELTAMIVIR PHOSPHATE 75 MG CAPSULE PO ONE (23:47)
[2024-07-31] MEDS: ACETAMINOPHEN 1000 MG/100 ML BAG IVPB PRN (06:38)
[2024-07-31 07:33] LABS: BASO % 0.3 % (0-2.0); EOS % 0.2 % (0-4.5); HEMATOCRIT 42.9 % (35.4-49); HEMOGLOBIN 14.3 GM/dL (11.7-16.9); LYMPH % 23.3 % (8-40); MCH 31.7 pg (25.7-33.7); MCHC 33.3 g/dl (32.0-35.9); MEAN CELL VOLUME 95.2 fl (80-96); MEAN PLT VOLUME 8.2 fl (7.5-11.1); MONO % 13.3 % (3.8-10.2); NEUT % 62.9 % (42.8-82.8); PLATELET COUNT 206 10^3/uL (134-434); RBC 4.51 M/mm3 (4.00-5.60); RDW 14.5 % (11.9-15.9); WHITE BLOOD COUNT 7.5 K/mm3 (4.0-10.0)
[2024-07-31 08:30] LABS: ALBUMIN 3.9 g/dl (3.4-5.0); BILIRUBIN,TOTAL 0.5 mg/dL (0.2-1); BLOOD UREA NITROGEN 18.3 mg/dL (7-18); CALCIUM 8.7 mg/dL (8.5-10.1); CREATININE 1.4 mg/dL (0.55-1.3); POTASSIUM 3.2 mmol/L (3.5-5.1)
[2024-07-31] MEDS: FAMOTIDINE 20 MG TABLET PO SCH (10:00)
[2024-07-31] MEDS: ENALAPRIL MALEATE 10 MG TABLET PO SCH (10:00)
[2024-07-31] MEDS: BRIMONIDINE TARTRATE 0.1% OPHTHALMIC 5 ML BOTTLE OU SCH (10:01)
[2024-07-31] MEDS: FINASTERIDE 5 MG TABLET (FP) PO SCH (10:01)
[2024-07-31] MEDS: MONTELUKAST NA 10 MG TABLET PO SCH (10:01)
[2024-07-31] MEDS: amLODIPine BESYLATE 5 MG TABLET (FP) PO SCH (10:01)
[2024-07-31] MEDS: TIMOLOL 0.5% OPHTHALMIC SOL 5 ML BOTTLE OU SCH (10:45)
[2024-07-31] MEDS: OSELTAMIVIR PHOSPHATE 30 MG CAPSULE PO SCH (10:45)
[2024-07-31] MEDS: POTASSIUM CHLORIDE TABS 20 MEQ TABLET.ER (FP) PO SCH (13:06)
[2024-07-31 13:17] LABS: PHOSPHOROUS 2.6 mg/dL (2.5-4.9)
[2024-07-31] MEDS: ALBUTEROL SO4 2.5/IPRATROPIUM 0.5 INH SOL 3 ML VIAL.NEB. NEB SCH (16:09)
[2024-07-31] MEDS: ALBUTEROL SO4 0.083% IH SOL 2.5 MG/3 ML VIAL.NEB. NEB STA (16:10)
[2024-07-31] MEDS: methylPREDNISolone NA SUCC 40 MG/1 ML VIAL IVPUSH SCH (16:17)
[2024-07-31] MEDS: ALBUTEROL SO4 0.083% IH SOL 2.5 MG/3 ML VIAL.NEB. NEB SCH (20:00)
[2024-07-31] MEDS: ATORVASTATIN CA 80 MG TABLET (FP) PO SCH (21:23)
[2024-07-31] MEDS ORDERED: VERAPAMIL HCL 240 MG E.R. TABLET PO SCH (22:00)
[2024-08-01 08:05] LABS: BASO % 0.2 % (0-2.0); HEMATOCRIT 46.1 % (35.4-49); HEMOGLOBIN 15.3 GM/dL (11.7-16.9); LYMPH % 18.5 % (8-40); MCH 31.1 pg (25.7-33.7); MCHC 33.2 g/dl (32.0-35.9); MEAN CELL VOLUME 93.9 fl (80-96); MEAN PLT VOLUME 8.5 fl (7.5-11.1); MONO % 6.7 % (3.8-10.2); NEUT % 74.6 % (42.8-82.8); PLATELET COUNT 212 10^3/uL (134-434); RBC 4.91 M/mm3 (4.00-5.60); RDW 14.4 % (11.9-15.9); WHITE BLOOD COUNT 6.9 K/mm3 (4.0-10.0)
[2024-08-01 08:24] LABS: POTASSIUM 4.2 mmol/L (3.5-5.1)
[2024-08-01 08:26] LABS: ALBUMIN 3.6 g/dl (3.4-5.0); CALCIUM 9.4 mg/dL (8.5-10.1); MAGNESIUM 2.4 mg/dL (1.8-2.4)
[2024-08-01 08:29] LABS: CREATININE 1.2 mg/dL (0.55-1.3)
[2024-08-01 08:31] LABS: BILIRUBIN,TOTAL 0.4 mg/dL (0.2-1)
[2024-08-01] MEDS: CHLORTHALIDONE 25 MG TABLET PO SCH (11:31)
[2024-08-01] MEDS: ENALAPRIL MALEATE 10 MG TABLET PO SCH (22:12)
[2024-08-01] MEDS: ACETAMINOPHEN 325 MG TABLET (FP) PO ONE (22:27)
[2024-08-02 07:33] LABS: BASO % 0.1 % (0-2.0); HEMATOCRIT 45.6 % (35.4-49); HEMOGLOBIN 14.8 GM/dL (11.7-16.9); LYMPH % 9.4 % (8-40); MCH 30.6 pg (25.7-33.7); MCHC 32.4 g/dl (32.0-35.9); MEAN CELL VOLUME 94.4 fl (80-96); MEAN PLT VOLUME 8.3 fl (7.5-11.1); MONO % 7.4 % (3.8-10.2); NEUT % 83.1 % (42.8-82.8); PLATELET COUNT 222 10^3/uL (134-434); RBC 4.83 M/mm3 (4.00-5.60); RDW 14.4 % (11.9-15.9); WHITE BLOOD COUNT 11.1 K/mm3 (4.0-10.0)
[2024-08-02 07:58] LABS: POTASSIUM 4.3 mmol/L (3.5-5.1)
[2024-08-02 08:01] LABS: ALBUMIN 3.5 g/dl (3.4-5.0); BLOOD UREA NITROGEN 32.4 mg/dL (7-18); CALCIUM 9.7 mg/dL (8.5-10.1)
[2024-08-02 08:04] LABS: CREATININE 1.5 mg/dL (0.55-1.3)
[2024-08-02 08:06] LABS: BILIRUBIN,TOTAL 0.8 mg/dL (0.2-1); TOT PROT 6.9 g/dl (6.4-8.2)
[2024-08-03 08:22] LABS: BASO % 0.1 % (0-2.0); HEMATOCRIT 42.1 % (35.4-49); HEMOGLOBIN 14.5 GM/dL (11.7-16.9); LYMPH % 18.3 % (8-40); MCH 32.1 pg (25.7-33.7); MCHC 34.4 g/dl (32.0-35.9); MEAN CELL VOLUME 93.2 fl (80-96); MEAN PLT VOLUME 8.3 fl (7.5-11.1); MONO % 10.5 % (3.8-10.2); NEUT % 71.1 % (42.8-82.8); PLATELET COUNT 198 10^3/uL (134-434); RBC 4.52 M/mm3 (4.00-5.60); RDW 14.2 % (11.9-15.9); WHITE BLOOD COUNT 9.9 K/mm3 (4.0-10.0)
[2024-08-03 08:38] LABS: POTASSIUM 3.9 mmol/L (3.5-5.1)
[2024-08-03 08:40] LABS: BLOOD UREA NITROGEN 33.2 mg/dL (7-18); CALCIUM 9.3 mg/dL (8.5-10.1)
[2024-08-03 08:44] LABS: CREATININE 1.3 mg/dL (0.55-1.3)
[2024-08-03] MEDS: methylPREDNISolone NA SUCC 40 MG/1 ML VIAL IVPUSH SCH (09:46)
[2024-08-03] MEDS: CHLORTHALIDONE 25 MG TABLET PO SCH (09:47)
[2024-08-03] MEDS: ALBUTEROL SO4 0.083% IH SOL 2.5 MG/3 ML VIAL.NEB. NEB SCH (16:55)
[2024-08-03] MEDS: cloNIDine HCL 0.1 MG TABLET PO ONE (18:53)
[2024-08-03] MEDS: CARVEDILOL 3.125 MG TABLET (FP) PO SCH (18:53)
[2024-08-03] MEDS: predniSONE 20 MG TABLET (UD) PO SCH (18:53)
[2024-08-03] MEDS: ATORVASTATIN CA 80 MG TABLET (FP) PO SCH (21:20)
[2024-08-03] MEDS: ENALAPRIL MALEATE 10 MG TABLET PO SCH (21:20)
[2024-08-03] MEDS: TIMOLOL 0.5% OPHTHALMIC SOL 5 ML BOTTLE OU SCH (22:45)
[2024-08-03] MEDS: OSELTAMIVIR PHOSPHATE 30 MG CAPSULE PO SCH (22:45)
[2024-08-04 03:16] VITALS: TEMP 98.2
[2024-08-04] MEDS ORDERED: BRIMONIDINE TARTRATE 0.1% OPHTHALMIC 5 ML BOTTLE OU SCH (10:00)
[2024-08-04] MEDS ORDERED: MONTELUKAST NA 10 MG TABLET PO SCH (10:00)
[2024-08-04] MEDS ORDERED: cloNIDine HCL 0.1 MG TABLET PO ONE (10:09)
[2024-08-04] MEDS: FAMOTIDINE 20 MG TABLET PO SCH (10:10)
[2024-08-04] MEDS: FINASTERIDE 5 MG TABLET (FP) PO SCH (10:11)
[2024-08-04] MEDS: amLODIPine BESYLATE 5 MG TABLET (FP) PO SCH (10:11)
[2024-08-04 10:12] LABS: POTASSIUM 3.3 mmol/L (3.5-5.1)
[2024-08-04 10:18] LABS: BLOOD UREA NITROGEN 25.6 mg/dL (7-18)
[2024-08-04 10:19] LABS: CALCIUM 9.9 mg/dL (8.5-10.1)
[2024-08-04 10:22] LABS: CREATININE 1.3 mg/dL (0.55-1.3)
[2024-08-04 14:26] VITALS: BP 138/87; PULSE 91; RESP 19
== END 2024-08-04 13:10 | disposition home or self-care (01) | DRG 194 ==
LOC: JER 15:02 → JERBED 21:02 → J4W 22:46 → J6S 08-03 12:58
PROVIDERS: ADMIT Internal Medicine; ATTEND Internal Medicine
DX: J10.1 Influenza due to other identified influenza virus with other respiratory manifestations (principal); I24.89 Other forms of acute ischemic heart disease; E78.5 Hyperlipidemia, unspecified; N40.0 Benign prostatic hyperplasia without lower urinary tract symptoms; H40.9 Unspecified glaucoma; I12.9 Hypertensive chronic kidney disease with stage 1 through stage 4 chronic kidney disease, or unspecified chronic kidney disease; N18.30 Chronic kidney disease, stage 3 unspecified
CPT/HCPCS: 0241U-QW; 36415; 71045-TC-FY; 71275-TC; 74174-TC; 80048; 80053; 80061; 81003; 82803; 82962; 83605; 83690; 83735; 83880; 84100; 84443; 84484; 85025; 85610; 85730; 87086; 93005; 93010; 93306-TC; 94640; 97116-GP; 97162-GP; 99285-25; J0131; Q9967